=== PATIENT | female | born 1975 | race African-American/Black ===

== ENCOUNTER 2020-01-27 20:34 | Emergency (ER) | payer OTHER ==
[~2020-01-27] VITALS: Ht 160 cm; Wt 82.0 kg
[2020-01-27] MEDS ORDERED: BACITRACIN ZINC OINT UDPKT TOP ONE (23:45)
[2020-01-27] MEDS ORDERED: LIDOCAINE 1%/EPI 1:100,000 10 ML VIAL IJ ONE (23:45)
[2020-01-27] MEDS ORDERED: TETANUS, DIPHTHERIA, PERTUSSIS VAC/PF 0.5ML (>7YR OLD) IM ONE (23:45)
[2020-01-28] MEDS ORDERED: ACETAMINOPHEN WITH CODEINE 300/30MG TABLET PO ONE (03:00)
[2020-01-28 03:15] VITALS: BP 133/76
== END 2020-01-28 04:15 | disposition home or self-care (01) ==
LOC: ER 20:34
DX: S01.81XA Laceration without foreign body of other part of head, initial encounter (principal); S01.411A Laceration without foreign body of right cheek and temporomandibular area, initial encounter; G40.909 Epilepsy, unspecified, not intractable, without status epilepticus; F31.9 Bipolar disorder, unspecified; J45.909 Unspecified asthma, uncomplicated; Z98.890 Other specified postprocedural states; Z88.0 Allergy status to penicillin; Y00.XXXA Assault by blunt object, initial encounter; Y93.89 Activity, other specified; Y92.488 Other paved roadways as the place of occurrence of the external cause
CPT/HCPCS: 12014; 81025; 90471; 90715; 99284

== ENCOUNTER 2021-07-12 20:11 | Emergency (ER) | payer MEDICAID ==
[~2021-07-12] VITALS: Ht 157.5 cm; Wt 69.0 kg
[2021-07-12 21:56] LABS: CLARITY URINE CLOUDY (CLEAR); COLOR URINE YELLOW (YELLOW); KETONES URINE TRACE (NEGATIVE); LEUKOCYTE ESTERASE URINE 1+ (NEGATIVE); NITRITE URINE NEGATIVE (NEGATIVE); OCCULT BLOOD URINE NEGATIVE (NEGATIVE); PH URINE 5.5 (4.5-8.0); PROTEIN URINE 1+ (NEGATIVE); SPECIFIC GRAVITY URINE 1.019 (1.005-1.030); UROBILINOGEN URINE 0.2 E.U./dL (0.2-1.0)
[2021-07-12] MEDS ORDERED: KETOROLAC 15MG/ML VIAL IM ONE (22:00)
[2021-07-12] MEDS ORDERED: LIDOCAINE 5% PATCH TOP SCH (22:00)
[2021-07-12] MEDS ORDERED: CEFTRIAXONE SODIUM 1 G/VIAL IM ONE (22:45)
[2021-07-12] MEDS ORDERED: NITR100C MT (23:11)
[2021-07-12 23:47] VITALS: BP 120/85
== END 2021-07-12 23:49 | disposition home or self-care (01) ==
LOC: ER 20:11
DX: G89.29 Other chronic pain (principal); M54.50 Low back pain, unspecified; N39.0 Urinary tract infection, site not specified; G40.909 Epilepsy, unspecified, not intractable, without status epilepticus; F31.9 Bipolar disorder, unspecified; J45.909 Unspecified asthma, uncomplicated; Z88.0 Allergy status to penicillin
CPT/HCPCS: 81003; 96372; 99284; J0696; J1885